=== PATIENT | female | born 1960 | race African-American/Black ===

== ENCOUNTER 2023-03-13 18:43 | Emergency (ER) | payer OTHER, SELFPAY ==
[2023-03-13 20:37] LABS: CRP (Inflammatory) 3.27 mg/dL (= or < 0.5); Uric Acid 7.6 mg/dL (2.6-6.0)
== END 2023-03-13 22:00 | disposition home or self-care (01) ==
LOC: MADERS 18:43
DX: M10.061 Idiopathic gout, right knee (principal); E03.9 Hypothyroidism, unspecified; I10 Essential (primary) hypertension; K21.9 Gastro-esophageal reflux disease without esophagitis; Z79.899 Other long term (current) drug therapy
CPT/HCPCS: 36415; 84550; 85652; 86140